=== PATIENT | male | born 1980 | race Caucasian/White ===

== ENCOUNTER 2021-05-19 13:06 | Emergency (ER) | payer OTHER ==
[~2021-05-19] VITALS: Ht 182.9 cm; Wt 95.3 kg
[~2021-05-19 13:06] MED LIST: KEFLEX500 M1 PO; ULTRAM 50MG TAB50 MG PO
[2021-05-19] MEDS ORDERED: CIPRO500 M1 PO (15:33)
[2021-05-19 15:41] VITALS: BP 126/68
== END 2021-05-19 15:41 | disposition home or self-care (01) ==
LOC: M.ERS 13:06
DX: S91.331A Puncture wound without foreign body, right foot, initial encounter (principal); Z88.1 Allergy status to other antibiotic agents; Z88.0 Allergy status to penicillin; W22.8XXA Striking against or struck by other objects, initial encounter; Y93.89 Activity, other specified; Y92.89 Other specified places as the place of occurrence of the external cause; Y99.8 Other external cause status